=== PATIENT | male | born 1945 | race Caucasian/White ===

== ENCOUNTER 2018-05-12 10:54 | Inpatient (IN) ==
[2018-05-12 11:05] LABS: Microscopic, Urine URINE MICROSCOPIC (MICROSCOPIC)
[2018-05-12 11:10] LABS: Basophils # 0.1 K/mm3 (0-0.2); Basophils % 0.6 % (0.1-2.0); Eosinophils # 0.1 K/mm3 (0.0-0.4); Eosinophils % 0.9 % (0.1-12.0); Hematocrit 47.3 % (42.0-52.0); Hemoglobin 14.9 g/dL (14.1-18.0); Lymphocytes # 6.3 K/mm3 (0.7-4.5); Lymphocytes % 51.7 % (10-50); Mean Corpuscular HGB Conc 31.5 g/dL (31.8-35.4); Mean Corpuscular Hemoglobin 31.1 pg (27.0-31.2); Mean Corpuscular Volume 98.7 fl (80-94); Mean Platelet Volume 7.8 fl (7.4-10.4); Monocytes # 0.4 K/mm3 (0.1-1.0); Monocytes % 3.4 % (1.7-9.3); Neutrophils # 5.3 K/mm3 (1.8-7.8); Neutrophils % 43.3 % (37.0-80.0); Platelet Count 111 K/mm3 (142-424); Red Blood Count 4.79 M/mm3 (4.60-6.20); Red Cell Distribution Width 14.6 % (11.5-17.5); White Blood Count 12.2 K/mm3 (4.8-10.8)
[2018-05-12 11:11] LABS: Appearance,Urine CLOUDY (Clear); Blood, Urine TRACE-L (Negative); Color,Urine DK YELLOW (Yellow); Glucose,Urine (UA) Negative (Negative); Ketones,Urine Negative (Negative); Leukocyte Esterase,Urine Negative (Negative); PH,Urine 5.5 (5.0-8.5); Protein,Urine Negative (Negative); Specific Gravity, Urine >= 1.030 (1.005-1.030)
[2018-05-12 11:15] LABS: Bilirubin,Urine Negative (Negative)
[2018-05-12 11:17] LABS: Amphetamine/Metha Screen,Urine Negative ng/mL (<1000); Bacteria,Urine 4+ /lpf; Barbiturates Screen,Urine Negative ng/mL (<200); Benzodiazepines Screen,Urine Negative ng/mL (<200); Cannabinoid Screen,Urine Negative ng/mL (<50); Cocaine Screen,Urine Negative ng/mL (<300); Methadone Screen,Urine Negative ng/mL (<300); Opiate Screen,Urine Negative ng/mL (<300); Phencyclidine Screen,Urine Negative ng/mL (<25); Squamous Epithelial Cell,Urine Occasional #/hpf (0-5)
[2018-05-12 11:20] LABS: ABG Base Excess -18.1 mmol/L (-2.4-2.3); ABG HCO3 13.9 mmhg (22.0-26.0); ABG Oxygen Saturation 97 % (90-100); ABG PO2 149.9 mmhg (80-100); ABG TCO2 15.9 mmhg (23-27); Oxygen 100 %; Tidal Volume 500
[2018-05-12 11:21] LABS: Allen's Test PT UNABLE; PEEP 5
[2018-05-12 11:22] LABS: ABG PCO2 64.4 mmhg (35.0-45.0); ABG PH 6.95 mmol/L (7.35-7.45)
[2018-05-12 11:24] LABS: Eosinophils % 1 % (0-3); Lymphocytes % 19 % (10-50); Monocytes % 1 % (2-9); Neutrophils % 44 % (42-76); RBC Morphology Normal; Total Cells Counted 100
[2018-05-12 11:27] LABS: Anion Gap 19.4 mEq/L (5-15); Aspartate Amino Transferase 44 U/L (15-37); Bilirubin,Total 0.9 mg/dL (0.2-1.0); Blood Urea Nitrogen 18 mg/dL (7-18); Calcium 9.1 mg/dL (8.5-10.1); Carbon Dioxide 19 mmol/L (21.0-32.0); Chloride 104 mmol/L (98-107); Creatine Kinase 67 U/L (39-308); Glucose 255 mg/dL (74-106); Sodium 143 mmol/L (136-145)
[2018-05-12 11:28] LABS: Alanine Aminotransferase 32 U/L (12-78); Albumin Level 2.9 gm/dL (3.4-5.0); Albumin/Globulin Ratio 0.7 (1.1-1.8); Alkaline Phosphatase 112 U/L (46-116); Ethyl Alcohol 0 mg/dL (0-99); Globulin 4.2 gm/dl (1.3-3.2); Total Protein,Serum 7.1 gm/dL (6.4-8.2)
--- NOTE | 2018-05-12 11:30 | Emergency Department Note ---
ED Disposition Clinical Impression: Cardiac arrest, Atrial fibrillation with rapid ventricular response, Arrhythmia, Prostate cancer, Diabetes mellitus, Depression, Hypokalemia, Subarachnoid hemorrhage Disposition: Still a Patient Condition on Discharge: Fair - Critical Care Critical Care Time: Yes Attestation: On , the high probability of a clinically significant, sudden or life threatening deterioration of the following system(s) required my full and direct attention, intervention and personal management. The time I documented below is in addition to time spent performing reported procedures but includes the following listed in this critical care notation. Vital system(s) involved:: Circulatory Failure, Central Nervous System, Respiratory Failure My critical care processes included: Assessment & monitoring of V/S, Initial and Re-exams, Data Review/Interpretation, Coordinating Care, Medication Orders and management, Documentation [facility] Code Documentation - Arrest Information Outside of Hospital The Code Document Section documentation for [id number] Eugene Swain was populated with data that defaulted in from the radio time buyer in the Code Assessment on f_Reg Service Date] to provide within this report, the status and treatment of the patient in the ED during a Code. This documentation will be sup plemented with my direct findings within the body of the report. Date Treatment Initiated: 05/12/18 Treatment Initiated By: EMS Arrest Witnessed: Yes (by his son ) - Arrest Information in Hospital Date of Arrest: 05/12/18 Time of Arrest: 10:15 Type of Arrest In-house: Cardiac In-house Arrest Witnessed: Yes - Unmonitored - ALS Code Inititation ALS Initiated By: son ALS Type: ACLS - Patient Condition At Code Start Condition of Patient at Start of Code: Pulseless Monitoring Devices: ECG Monitor - Oxygenation Oxygen Breathing Status: Apneic Oxygen Delivery Method: Endotracheal Tube Flow Rate: 10 FIO2: 100 - Labs Fingerstick Blood Glucose: 220 Specimens collected: Blood - Procedures ABG's Drawn: Yes (Severe respiratory and metabolic acidosis) - Assisted Ventilation ETT Insertion Time: 10:20 ETT Size: 7 ETT Position at Lip: 22 ETT Placement Confirmation: Ausculatation Bilateral Breath Sounds - Code End Patient Successfully Resuscitated: Yes (the patient reusemed a rhyth of a fib RVR ) Family Members Present During Code: No Names of All Individuals Present at Code: His son Srikanth was allowed at the bed side. Medical Decision Making - Lopez Inquiry Pt receiving controlled substance: No Lopez was queried for this patient: No Vital Signs: 03/24/19 10:54 05/12/18 13:13 05/12/18 13:18 Temperature Temperature Source Pulse Rate Pulse Rate [Right Brachial] 115 H Respiratory Rate Blood Pressure Blood Pressure [Right Arm] 100/82 L Blood Pressure Mean [Right Arm] 88 Blood Pressure Source Blood Pressure Position 02 Sat by Pulse Oximetry 97 97 Oxygen Delivery Method Oxygen Flow Rate (LPM) 10 05/12/18 13:32 Temperature 97.8 F Temperature Source Rectal Pulse Rate 117 H Pulse Rate [Right Brachial] Respiratory Rate 18 Blood Pressure 124/76 Blood Pressure [Right Arm] Blood Pressure Mean [Right Arm] Blood Pressure Source Automatic Cuff Blood Pressure Position Sitting 02 Sat by Pulse Oximetry Oxygen Delivery Method Mechanical Ventilation Oxygen Flow Rate (LPM) - Lab Data Lab Results 05/12/18 10:40: Urine Color Dk yellow, Urine Appearance Cloudy, Urine pH 5.5, Ur Specific [place] >= 1.030, Urine Protein Negative, Urine Glucose (UA) Negative, Urine Ketones Negative, Urine Blood Trace-l, Urine Nitrate Negative, Urine Bilirubin Negative, Urine Urobilinogen 1.0, Ur Leukocyte Esterase Negative, Urine WBC 3-5, Ur Squamous Epith Cells Occasional, Urine Bacteria 4+ 05/12/18 10:40: Urine Opiates Screen Negative, Urine Methadone Screen Negative, Ur Barbituates Screen Negative, Ur Phencyclidine Scrn Negative, Ur Amphetamines Screen Negative, U Benzodiazepines Scrn Negative, Urine Cocaine Screen Negative, U Marijuana (THC) Screen Negative 05/12/18 10:42: WBC 12.2 H, RBC 4.79, Hgb 14.9, Hct 47.3, MCV 98.7 H, MCH 31.1, MCHC 31.5 L, RDW 14.6, Plt Count 111 L, MPV 7.8, Neut % (Auto) 43.3, Lymph % (Auto) 51.7 H, [place] % (Auto) 3.4, Eos % (Auto) 0.9, Baso % (Auto) 0.6, Neut # (Auto) 5.3, Lymph # (Auto) 6.3 H, [place] # (Auto) 0.4, Eos # (Auto) 0.1, Baso # (Auto) 0.1, Total Counted 100, Neutrophils % (Manual) 44, Band Neutrophils % 2.0, Lymphocytes % (Manual) 19, Atypical Lymphs % 33.0, Monocytes % (Manual) 1 L , Eosinophils % (Manual) 1, Platelet Estimate Slight decrease, RBC Morphology Normal 05/12/18 10:42: Sodium 143, Potassium 3.0 L, Chloride 104, Carbon Dioxide 19 L, Anion Gap 19.4 H, BUN 18, Creatinine 1.19, Estimated Creat Clear 78, Estimated GFR 60, Est GFR ( Amer) 73, Glucose 255 H, Calcium 9.1, Magnesium 2.2, Total Bilirubin 0.9, AST 44 H, ALT 32, Alkaline Phosphatase 112, Total Creatine Kinase 67, CK-MB (CK-2) 0.6, CK-MB (CK-2) Rel Index 0.9, Troponin I < 0.02, Total Protein 7.1, Albumin 2.9 L, Globulin 4.2 H, Albumin/Globulin Ratio 0.7 L, Plasma/Serum Alcohol 0 05/12/18 11:17: Specimen Source L. radial, O2 % 100, ABG pH 6.95 L*, ABG pCO2 64.4 H, ABG pO2 149.9 H, ABG HCO3 13.9 L, ABG Total CO2 15.9 L, ABG O2 Saturation 97, ABG Base Excess -18.1 L, Gerardo Test Pt unable, Vent Rate 18, Tidal Volume 500, PEEP 5 Result diagrams: 05/12/18 10:42 05/12/18 10:42 Orders (Tests/Meds): ED MEDICATIONS Generic Name Dose Route Start Last Admin Trade Name Freq PRN Reason Stop Dose Admin Epinephrine HCl 1 mg 05/12/18 11:57 05/12/18 13:20 Epinephrine 0.1mg/Ml 10ml Syringe IV 06/11/18 11:56 1 mg NEEDED PRN Administration Code Blue Med Administration Sodium Bicarbonate 100 meq/ 1,100 mls @ 183.333 mls/hr 05/12/18 11:30 05/12/18 11:50 Sodium Chloride IV 05/12/18 17:29 183.333 mls/hr .Q6H SOCORRO Administration Potassium Chloride/Water 100 mls @ 50 mls/hr 05/12/18 12:30 Potassium Chloride 20meq/100ml Ivpb IV 05/12/18 16:29 Q2H SOCORRO Norepinephrine Bitartrate 8 mg 258 mls @ 9.68 mls/hr 05/12/18 13:00 05/12/18 12:56 / Dextrose IV 06/11/18 12:59 5 mcg/min .Q24H SOCORRO 9.68 mls/hr Administration Protocol 5 MCG/MIN Amiodarone HCl 900 mg/ 518 mls @ 33.3 mls/hr 05/12/18 13:30 05/12/18 13:31 Dextrose IV 05/13/18 05:03 33.3 mls/hr .[id number] SOCORRO Administration Discontinued Medications Generic Name Dose Route Start Last Admin Trade Name Freq PRN Reason Stop Dose Admin Amiodarone HCl 150 mg 05/12/18 11:57 05/12/18 13:27 Cordarone 150mg/3ml Vial IVP 05/12/18 11:58 Not Given ONCE ONE Atropine Sulfate 1 mg 05/12/18 11:57 05/12/18 11:08 Atropine 1mg/10ml Syringe IV 05/12/18 11:58 1 mg ONCE ONE Administration Diltiazem HCl 5 mg 05/12/18 11:57 05/12/18 10:55 Cardizem 25mg/5ml Vial IV 05/12/18 11:58 5 mg ONCE ONE Administration Diltiazem HCl 100 mg/ Sodium 100 mls @ 5 mls/hr 05/12/18 12:16 Chloride IV 06/11/18 12:15 .Q20H SOCORRO Protocol Sodium Chloride 1,000 mls @ 999 mls/hr 05/12/18 13:15 05/12/18 13:13 Sod Chlor 0.9% 1000ml Bag IV 05/12/18 14:15 999 mls/hr .Q1H1M SOCORRO Administration Sodium Chloride 1,000 mls @ 999 mls/hr 05/12/18 13:15 05/12/18 13:13 Sod Chlor 0.9% 1000ml Bag IV 05/12/18 14:15 999 mls/hr .Q1H1M SOCORRO Administration Amiodarone HCl 900 mg/ 518 mls @ 33.3 mls/hr 05/12/18 13:30 05/12/18 13:28 Dextrose IV 05/12/18 19:30 Not Given .[id number] SOCORRO Sodium Bicarbonate 50 meq 05/12/18 12:53 05/12/18 12:55 Sodium Bicarbonate 8.4% 50ml Syringe IV 05/12/18 12:54 50 meq ONCE ONE Administration ORDERS Category Date Time Status CT cervical spine wo con Stat Cat Scan 05/12/18 10:[address] head/brain wo con Stat Cat Scan 05/12/18 10:57 Taken Urine Culture Stat Micro 05/12/18 10:40 Received - Radiology Data #1 Image(s): Chest Image Reviewed: Yes I reviewed the patient's radiology image Preliminary Findings: Normal/NAD, Abnormal ET tube in good position, no pneumothorax no hydrothorax. - CT Data CT Scan: Head, C-Spine Time Received: 14:[address] Reviewed: Yes: I discussed the CT results w/the radiologist, I have viewed the radiologist's interpretation Preliminary Findings: Abnormal Findings Narrative: CT scan of the head was positive for high mild parietal subarachnoid hemorrhage. Scan of the spine was negative for fractures or subluxation. Chest x-ray was read by radiologist as ET tube in good position. Medical Decision Narrative: The patient after second arrest became stable assist control, levo fed and bicarb drip. I Called Dr. Bennett who accepted the patient, he is aware that if he arrests again there is no CPR, per the patient's wishes and living will (no copy provided by the family). 1300 patient received potassium supplementation, bicarb drip, but remained hem odynamically stable without neurologic improvement. 1455 While the patient was in the intensive care unit, I received a phone call from the radiologist regarding mild high parietal subarachnoid hemorrhage, I discussed the findings with his son. Who did not wish to change the course of management or go to a tertiary care facility. 1505 I reported the abnormal CT scan findings to Dr. Bennett who is caring for the patient upstairs. CPR HPI - General Stated Complaint: cardiac arrest Time Seen by Provider: 05/12/18 10:54 - History of Present Illness HPI narrative: 72 years old white male with history of diabetes, prostate cancer, and hypertension. Per his son the patient's medical condition has been deteriorating since his 10 years ago. He has been a residential resident and recently has been living with his son since the beginning of the year. Today while he was walking across the kitchen he fell and became unconscious, the son reports that his father's face turned blue, his eyes were fixed then he contacted the EMS service and started doing CPR. Patient arrived to the ED with a size 7 tube good bilateral breath sounds and asystole rhythm. CPR was continued and the patient was given epi patient regained, an irregular rhythm i n the form of atrial fibrillation with rapid ventricular response at 149/min, the patient was given Cardizem 5 mg IV push and amiodarone 150 mg bolus. Corrected his EKG to a normal sinus 69/min with a first-degree AV block and intraventricular conduction block. The patient did not arouse. His pupils remained 3 mm equal and fixed. I discussed with Dr. Hackett energy broker and updated him with the EKGs, there was no ST elevation the patient was not candidate for Sports Director per Dr. Hackett 1110 the patient became bradycardic, the patient was given atropine later on was given epinephrine and started Levophed. The patient resumed sinus rhythm and his blood pressure became palpable of 135/74 mmhg. His pupils remained fixed at 3 mm equal symmetrical. His blood gas was six-point 6.9/64/150/13 0.9/97% on assist control with 100% oxygen. I ordered 2 Amps of bicarb 1115 I discussed with his son Srikanth and he informed me that his father had a living will that he did not wish to be on life support. He informed me that if his father's heart to stop that he would not wish to repeat CPR. 1126 patient started to become hypotensive and the family was brought to the bedside. complaint: collapsed during activity Known history of: cancer Associated injuries: Yes (head, he fell and hit his head to the floor. ) - Related Data Allergies Allergy/AdvReac Type Severity Reaction Status Date / Time No Known Allergies Allergy Verified 05/12/18 11:22 [facility] History - Hepatitis A Screen Attestation statement:: This patient has been screened for Hepatitis A risk factors. I have reviewed the patient's past medical history: Yes ROS Obtained: Yes All systems reviewed & no additional complaints Physical Exam - General General appearance: obtunded - Head Head exam: atraumatic, normocephalic - Eye Eye exam: Present: other (Pupils are 3 mm and fixed, positive doll's eye. ). Absent: scleral icterus, nystagmus - ENT ENT exam: Present: normal exam, mucous membranes moist, TM's normal bilaterally, normal external ear exam, other (Cyanotic mucous membrane. ) - Neck Neck exam: Present: normal inspection, full ROM, trachea midline. Absent: meningismus, lymphadenopathy - Chest Chest inspection: Present: symmetric chest wall rise (With bagging and intubation.) - Respiratory Respiratory exam: Present: other (Dear to auscultation with intubation and bagging. ) - Cardiovascular Cardiovascular exam: Present: other (No heart sounds at the beginning of the code. ) - Abdominal Exam Abdominal exam: Present: soft, normal bowel sounds. Absent: distention, tenderness, guarding, rebound, rigidity - exam: Present: normal inspection - Extremities Exam Extremities exam: Present: normal inspection - Back Exam Back exam: Present: normal inspection - Neurological Exam Neurological exam: Present: other (Pupils are fixed. NO Corneal reflexes. ) - Lymphatic Lymphatic Findings: no adenopathy
--- NOTE | 2018-05-12 15:23 | History & Physical Report ---
*Admission Date: 05/12/18 *Chief complaint: Trauma to head and loss of consciousness *History of present illness: Patient is a 72-year-old white male with a history of prostate cancer, diabetes mellitus type 2 and hypertension. According to the son, patient's health has been deteriorating since his 10 years ago. He used to live in a assisted and has been living with his son for the past 3 months. Today while he was standing in the kitchen he felt backwards and hit his head on the floor and became unconscious. The son reported that his dad's face turned blue and his eyes were fixed and he was not responding. He started doing CPR and his called 911. Patient arrived to [facility] ED with a size 7 tube that showed good bilateral breath sounds but with asystole. CPR was continued in the ED and patient was given epinephrine. Patient was regained with a regular rhythm that was consistent with the A. fib with the RVR at a rate of 149/min. He was then given Cardizem 5 mg IV push in the ED and amiodarone 150 mg bolus. He converted to normal sinus rhythm in the ED with a heart rate of 69/min with a first-degree AV block. Patient remained non-arousable and his pupils were still equal and fixed at 3 mm in the ED. Then patient became bradycardic in the ED and was given atropine and was started on Levophed for his declining blood pressure. His ABG from the ED showed respiratory acidosis. He was started on bicarb in the ED. I got a call from nurse Ellis mentioning that the family is wanting to discuss their options with me as patient's status is declining. When I examined patient at 3 PM, his GCS was 3, E1 V1 M1, his pupils were still equal and fixed at [address] scan of head showed parietal subarachnoid hemorrhage with severe edema in the brain. His chest x-ray revealed bilateral pneumonia. His ABG also revealed severe respiratory acidosis with no compensation. I discussed the above findings with the family, son and [id number]. He mentioned that patient does have a living will in the bank at a locker which states that he is a DNR/DNI and does not want her to have any extraordinary life measures done to him, including intubation and CPR. After having extensive conversation about the poor prognosis, family agreed to change his status to DNR/DNI and comfort measures at this time. Patient's CODE STATUS was changed to comfort measures immediately and he was extubated. All treatments were stopped and he was started on morphine 4 mg IV every 4 hours, Ativan 2 mg IV every 2 hours, and scopolamine patches for controlling his secretions. All drips, routine vital signs and fingersticks were stopped at this time. [facility] History I have reviewed the patient's past medical history: Yes Medical History: Reports:: Atherosclerotic Heart Disease, Atrial Fibrillation, Diabetes Mellitus Type 2 *Have you ever received a pneumonia vaccine?: No (unable to attain given severity of his condition) *Have you received a flu vaccine this season?: No (unable to attain given severity of his condition) Other Surgeries: Yes: Other (unable to attain given severity of his condition) - *Social History Smoking Status: Unknown if ever smoked Alcohol Intake: never Alcohol Intake Frequency:: other Substance Use Type: other *Occupational Status:: other (unable to attain given severity of his condition) Family Hx:: Unable to obtain Review of Systems - Review of Systems Review of systems:: unable to obtain Meds Allergies Allergy/AdvReac Type Severity Reaction Status Date / Time No Known Allergies Allergy Verified 05/12/18 11:22 Exam Vital signs and Labs for Last 24 Hours: Temp Pulse Resp BP Pulse Ox 97.8 F 117 H 18 124/76 97 05/12/18 13:32 05/12/18 13:32 05/12/18 13:32 05/12/18 13:32 05/12/18 13:13 Laboratory Results - last 24 hr 05/12/18 10:40: Urine Color Dk yellow, Urine Appearance Cloudy, Urine pH 5.5, Ur Specific [place] >= 1.030, Urine Protein Negative, Urine Glucose (UA) Negative, Urine Ketones Negative, Urine Blood Trace-l, Urine Nitrate Negative, Urine Bilirubin Negative, Urine Urobilinogen 1.0, Ur Leukocyte Esterase Negative, Urine WBC 3-5, Ur Squamous Epith Cells Occasional, Urine Bacteria 4+ 05/12/18 10:40: Urine Opiates Screen Negative, Urine Methadone Screen Negative, Ur Barbituates Screen Negative, Ur Phencyclidine Scrn Negative, Ur Amphetamines Screen Negative, U Benzodiazepines Scrn Negative, Urine Cocaine Screen Negative, U Marijuana (THC) Screen Negative 05/12/18 10:42: WBC 12.2 H, RBC 4.79, Hgb 14.9, Hct 47.3, MCV 98.7 H, MCH 31.1, MCHC 31.5 L, RDW 14.6, Plt Count 111 L, MPV 7.8, Neut % (Auto) 43.3, Lymph % (Auto) 51.7 H, [place] % (Auto) 3.4, Eos % (Auto) 0.9, Baso % (Auto) 0.6, Neut # (Auto) 5.3, Lymph # (Auto) 6.3 H, [place] # (Auto) 0.4, Eos # (Auto) 0.1, Baso # (Auto) 0.1, Total Counted 100, Neutrophils % (Manual) 44, Band Neutrophils % 2.0, Lymphocytes % (Manual) 19, Atypical Lymphs % 33.0, Monocytes % (Manual) 1 L , Eosinophils % (Manual) 1, Platelet Estimate Slight decrease, RBC Morphology Normal 05/12/18 10:42: Sodium 143, Potassium 3.0 L, Chloride 104, Carbon Dioxide 19 L, Anion Gap 19.4 H, BUN 18, Creatinine 1.19, Estimated Creat Clear 78, Estimated GFR 60, Est GFR ( Amer) 73, Glucose 255 H, Calcium 9.1, Magnesium 2.2, Total Bilirubin 0.9, AST 44 H, ALT 32, Alkaline Phosphatase 112, Total Creatine Kinase 67, CK-MB (CK-2) 0.6, CK-MB (CK-2) Rel Index 0.9, Troponin I < 0.02, Total Protein 7.1, Albumin 2.9 L, Globulin 4.2 H, Albumin/Globulin Ratio 0.7 L, Plasma/Serum Alcohol 0 05/12/18 11:17: Specimen Source L. radial, O2 % 100, ABG pH 6.95 L*, ABG pCO2 64.4 H, ABG pO2 149.9 H, ABG HCO3 13.9 L, ABG Total CO2 15.9 L, ABG O2 Saturation 97, ABG Base Excess -18.1 L, Gerardo Test Pt unable, Vent Rate 18, Tidal Volume 500, PEEP 5 I & O for Last 24 hours: Intake & Output 05/10/18 05/11/18 05/12/18 05/13/18 11:59 11:59 11:59 11:59 Weight 220 lb - *Routine HEENT Exam Eye: Absent: nystagmus (Fixed and dilated at 3 mm bilaterally) ENT: Present: mucous membranes dry - *Routine Respiratory Exam Present: accessory muscle use, patient mechanically ventilated, decreased breath sounds, respiratory distress, distant breath sounds, diminished air movement - *Routine Cardiovascular Exam Present: irregularly irregular (Likely controlled with the amiodarone drip during exam) - *Routine Abdominal Exam Present: soft, distended - *Routine Extremities Exam Absent: edema, full ROM - *Routine Skin Exam Present: dry - *Routine Neurological Exam Present: motor deficit. Absent: alert, oriented X3, CN II-XII intact, moving all extremities (GCS is 3, E1 V1 M1) Assessment and Plan (1) Subarachnoid hemorrhage Current visit: Yes Status: Acute Category: Medical Code(s): I60.9 - Nontraumatic subarachnoid hemorrhage, unspecified (2) Atrial fibrillation with rapid ventricular response Current visit: Yes Status: Acute Category: Medical Code(s): I48.91 - Unspecified atrial fibrillation (3) Cardiac arrest Current visit: Yes Status: Acute Category: Medical Code(s): I46.9 - Cardiac arrest, cause unspecified (4) Diabetes mellitus Current visit: Yes Status: Acute Category: Medical Code(s): E11.9 - Type 2 diabetes mellitus without complications (5) Hypokalemia Current visit: Yes Status: Acute Category: Medical Code(s): E87.6 - Hypokalemia (6) Prostate cancer Current visit: Yes Status: Acute Category: Medical Code(s): C61 - Malignant neoplasm of prostate - Assessment and plan all Dx Assessment and Plan for all problems:: on comfort measures
--- NOTE | 2018-05-12 15:47 | Death Note ---
Pronouncement Note - Date and Time of Date of : 05/12/18 Time of : 15:31 - PCOD Preliminary cause of : Cardiac arrest - Additional Data Confirmation of : no pulse, no respirations, no heart sounds, pupils fixed and dilated Family: at bedside Additional persons at bedside: other (Nurse) Attending/PCP notified?: Yes Attending physician: Hanny Bennett MD Autopsy requested?: Yes money examiner notified?: Yes Organ bank notified?: No Advance directives: Yes (comfort measures, DNR/DNI)
--- NOTE | 2018-05-12 15:50 | Death Note ---
Discharge Sum: Prov - Provider Primary care physician: Referral Provider, Admitting clinician: Blake Salazar Attending physician on admission: Hanny Bennett Pronouncing clinician: Hanny Bennett Discharge Sum: Diag - PCOD Cause of : Cardiac arrest Discharge Sum: Summary - Date and Time Date of admission: 05/12/18 13:33 Date of : 05/12/18 Time of : 15:31 - Summary Details: Patient is a 72-year-old white male with a history of prostate cancer, diabetes mellitus type 2 and hypertension. According to the son, patient's health has been deteriorating since his 10 years ago. He used to live in a correction and has been living with his son for the past 3 months. Today while he was standing in the kitchen he felt backwards and hit his head on the floor and became unconscious. The son reported that his dad's face turned blue and his eyes were fixed and he was not responding. He started doing CPR and his called 911. Patient arrived to [facility] ED with a size 7 tube that showed good bilateral breath sounds but with asystole. CPR was continued in the ED and patient was given epinephrine. Patient was regained with a regular rhythm that was consistent with the A. fib with the RVR at a rate of 149/min. He was then given Cardizem 5 mg IV push in the ED and amiodarone 150 mg bolus. He converted to normal sinus rhythm in the ED with a heart rate of 69/min with a first-degree AV block. Patient remained non-arousable and his pupils were still equal and fixed at 3 mm in the ED. Then patient became bradycardic in the ED and was given atropine and was started on Levophed for his declining blood pressure. His ABG from the ED showed respiratory acidosis. He was started on bicarb in the ED. I got a call from nurse Ellis mentioning that the family is wanting to discuss their options with me as patient's status is declining. When I examined patient at 3 PM, his GCS was 3, E1 V1 M1, his pupils were still equal and fixed at [address] scan of head showed parietal subarachnoid hemorrhage with severe edema in the brain. His chest x-ray revealed bilateral pneumonia. His ABG also revealed severe respiratory acidosis with no compensation. I discussed the above findings with the family, son and [id number]. He mentioned that patient does have a living will in the bank at a locker which states that he is a DNR/DNI and does not want her to have any extraordinary life measures done to him, including intubation and CPR. After having extensive conversation about the poor prognosis, family agreed to change his status to DNR/DNI and comfort measures at this time. Patient's CODE STATUS was changed to comfort measures immediately and he was extubated. All treatments were stopped and he was started on morphine 4 mg IV every 4 hours, Ativan 2 mg IV every 2 hours, and scopolamine patches for controlling his secretions. All drips, routine vital signs and fingersticks were stopped at this time. Within minutes after changing to comfort measures, patient at 1531. - Additional Data Confirmation of as documented by pronouncing clinician: no pulse, no respirations, no heart sounds, pupils fixed and dilated Family: at bedside Additional persons at bedside: other (Nurse) Attending/PCP notified?: Yes Attending physician: Hanny Bennett MD Was code activated?: Yes Autopsy requested?: Yes roll examiner notified?: Yes Organ bank notified?: No Advance directives: Yes Hospice patient?: No
== END 2018-05-12 19:10 | disposition expired | DRG 82 ==
LOC: ER 10:54 → 2ND 13:11
PROVIDERS: ADMIT Emergency Medicine; ATTEND Emergency Medicine
CPT/HCPCS: 70450; 71010; 71045; 72125; 80053; 80305; 81001; 82550; 82553; 82803; 82962; 83735; 84484; 85007; 85025; 87086; 87088; 87186; 92950; 93005; 96365; 96366; 96367; 96375; 96376; 99291; J0282; J7060